=== PATIENT | male | born 1970 | race Caucasian/White ===

== ENCOUNTER 2019-01-13 08:35 | Inpatient (IN) ==
[2019-01-07 17:20] LABS: Appearance,Urine CLEAR; Bilirubin,Urine NEG (NEG); Color,Urine YELLOW; Glucose,Urine (UA) NEGATIVE (NEG); Ketones,Urine NEG (NEG); Leukocyte Esterase,Urine NEG /uL (NEG); Nitrate,Urine NEG (NEG); Protein,Urine NEG (NEG); Specific Gravity,Urine 1.015 (1.000-1.035); Urine Blood NEG mg/dL (<0.03); Urobilinogen,Urine NEG (NEG)
[2019-01-07 17:29] LABS: Blood Urea Nitrogen 11 mg/dl (6-20); Calcium 9.6 mg/dl (8.6-10.4); Carbon Dioxide 25 mmol/L (22-30); Chloride 103 mmol/L (96-108); Glomerular Filtration Rate 101; Glucose 91 mg/dL (70-105)
[2019-01-07 17:42] LABS: INR 0.9 (0.9-1.1); Prothrombin Time 12.4 sec (11.9-14.5)
[2019-01-07 18:08] LABS: Basophils # (Auto) 0 K/mcL (0.0-0.3); Basophils % (Auto) 0.3 % (0.0-2.0); Eosinophils # (Auto) 0.3 K/mcL (0.0-0.7); Eosinophils % (Auto) 2.6 % (0.0-7.0); Granulocytes % (Auto) 68.4 % (38.0-78.0); Hematocrit 42.8 % (41.0-55.0); Hemoglobin 14.4 g/dL (13.5-16.5); Lymphocytes # (Auto) 1.8 K/mcL (1.5-4.8); Lymphocytes % (Auto) 17.5 % (15.5-49.0); Mean Corpuscular HGB Conc 33.7 g/dL (31.0-36.0); Mean Platelet Volume 8.8 fL (7.4-10.4); Monocytes # (Auto) 1.1 K/mcL (0.1-0.9); Monocytes % (Auto) 11.2 % (1.0-12.0); Platelet Count 264 K/mcL (140-440); RBC 4.28 M/mcL (4.50-5.90); Red Cell Distribution Width 13.1 % (11.5-14.5); WBC 10.1 K/mcL (4.5-11.0)
[~2019-01-13 08:35] MED LIST: 0.9 % SODIUM CHLORIDE 9 ML, KETOROLAC 30 MG, ROPIVACAINE HCL/PF 49.5 ML, EPINEPHrine 0.... IJ SCH; IPRATROPIUM/ALBUTEROL 3 ML AMPUL.NEB NEB PRN; SCOPOLAMINE 1 PATCH PATCH TOPICAL PRN; ceFAZolin 3 GM in DEXTROSE 5% IN WATER 50 ML IV SCH
[2019-01-13] MEDS ORDERED: ePHEDrine 50 MG/ML AMPUL IV ONE (11:15)
[2019-01-13] MEDS ORDERED: GLYCOPYRROLATE 0.2 MG/ML VIAL IV ONE (11:15)
[2019-01-13] MEDS ORDERED: KETAMINE 10 MG/ML ML ONE (11:15)
[2019-01-13] MEDS ORDERED: HYDROmorphone 2 MG/ML VIAL ONE (11:15)
[2019-01-13] MEDS ORDERED: MIDAZOLAM 5 MG/5 ML VIAL ONE (11:15)
[2019-01-13] MEDS ORDERED: DEXAMETHASONE 10 MG/ML VIAL ONE (11:15)
[2019-01-13] MEDS ORDERED: PROPOFOL 200 MG/20 ML VIAL IV ONE (11:15)
[2019-01-13] MEDS ORDERED: LIDOCAINE HCL/PF 100 MG/5 ML SYRINGE IV ONE (11:15)
[2019-01-13] MEDS ORDERED: PHENYLEPHRINE 10 MG/ML VIAL ONE (11:15)
[2019-01-13] MEDS ORDERED: fentaNYL 100 MCG/2 ML VIAL IV ONE (11:15)
[2019-01-13] MEDS ORDERED: ONDANSETRON 4 MG/2 ML VIAL ONE (11:15)
[2019-01-13] MEDS ORDERED: fentaNYL 100 MCG/2 ML VIAL IV PRN (11:59)
[2019-01-13] MEDS ORDERED: METHOCARBAMOL 1,000 MG/10 ML VIAL IV PRN (11:59)
[2019-01-13] MEDS ORDERED: FLUMAZENIL 0.1 MG/ML ML IV PRN (11:59)
[2019-01-13] MEDS ORDERED: HYDROmorphone 2 MG/ML VIAL IV PRN (11:59)
[2019-01-13] MEDS ORDERED: NALOXONE HCL 0.4 MG/ML VIAL IV PRN (11:59)
[2019-01-13] MEDS ORDERED: BENZOCAINE/MENTHOL 1 LOZENGE PO PRN ×2 (11:59→13:50)
[2019-01-13] MEDS ORDERED: ACETAMINOPHEN 1,000 MG/100 ML BOTTLE IV ONE (11:59)
[2019-01-13] MEDS ORDERED: IPRATROPIUM/ALBUTEROL 3 ML AMPUL.NEB NEB PRN (11:59)
[2019-01-13] MEDS ORDERED: LACTATED RINGERS 250 ML IV PRN (11:59)
[2019-01-13] MEDS ORDERED: MEPERIDINE 25 MG/ML SYRINGE IV PRN (11:59)
[2019-01-13] MEDS ORDERED: LACTATED RINGERS 1,000 ML IV SCH (12:00)
[2019-01-13] MEDS ORDERED: GENTAMICIN SULFATE 800 MG/20 ML VIAL IR ONE (12:02)
[2019-01-13] MEDS ORDERED: TRANEXAMIC ACID 1,000 MG/10 ML VIAL IV ONE ×2 (13:50→14:28)
[2019-01-13] MEDS ORDERED: POLYETHYLENE GLYCOL 3350 17 GM PACKET PO PRN (13:50)
[2019-01-13] MEDS ORDERED: BISACODYL 10 MG SUPP.RECT PR PRN (13:50)
[2019-01-13] MEDS ORDERED: ONDANSETRON 4 MG/2 ML VIAL IV PRN (13:50)
[2019-01-13] MEDS ORDERED: MAGNESIUM HYDROXIDE 30 ML ORAL.SUSP PO PRN (13:50)
[2019-01-13] MEDS ORDERED: FLEETS ADULT ENEMA PR PRN (13:50)
--- NOTE | 2019-01-13 13:50 | Brief Operative Note ---
Date of procedure: 01/13/19 Pre-op diagnosis: R knee DJD Post-op diagnosis: same Procedure: TRUDI r TKR Grafts/Implants: Yes (Triathlon knee ) Anesthesia: GETA Complications: none Surgeon: Jasmeet Vásquez Awning Maker: Jose De Jesus Nunes Tourniquet Time (Minutes): 250 Specimens Removed/Pathology: other (culture sent of synovial fluid) Condition: stable Disposition: PACU
[2019-01-13] MEDS ORDERED: ALPRAZolam 0.25 MG TABLET PO PRN (13:55)
[2019-01-13] MEDS ORDERED: ALLOPURINOL 100 MG TABLET PO PRN (13:55)
[2019-01-13] MEDS: 0.9 % SODIUM CHLORIDE 10 ML SYRINGE IV SCH ×2 (15:00→20:22)
[2019-01-13] MEDS: 0.45 % SODIUM CHLORIDE 1,000 ML IV SCH (15:20)
--- NOTE | 2019-01-13 16:04 | XRay Report ---
HISTORY: Postop right knee replacement FINDINGS: There is a well-positioned right total knee prosthesis. No fracture is present. Adjacent to the medial femoral condyle there is a heterotopic well circumscribed calcification which measures 6 x 13 mm. No donor site is seen. IMPRESSION: Well-positioned knee prosthesis Interpreted and Authenticated by: Elgin Pink 01/13/19
[2019-01-13] MEDS: oxyCODONE HCL 5 MG TABLET PO PRN ×2 (16:15→20:21)
[2019-01-13] MEDS: ceFAZolin 1 GM VIAL IV SCH (18:38)
[2019-01-13] MEDS: DOCUSATE SODIUM 100 MG CAPSULE PO SCH (20:21)
[2019-01-13] MEDS: DILTIAZEM 240 MG CAP.XL.24H PO SCH (20:22)
[2019-01-13] MEDS: SENNOSIDES 1 TABLET PO SCH (20:22)
[2019-01-13] MEDS: LOSARTAN 50 MG TABLET PO SCH (20:22)
[2019-01-13] MEDS: ASPIRIN 81 MG TAB.CHEW PO SCH (20:22)
[2019-01-14] MEDS: oxyCODONE HCL 5 MG TABLET PO PRN ×5 (02:59→20:52)
[2019-01-14] MEDS: ceFAZolin 1 GM VIAL IV SCH (03:01)
[2019-01-14] MEDS: 0.9 % SODIUM CHLORIDE 10 ML SYRINGE IV SCH ×4 (03:30→21:47)
[2019-01-14 05:44] LABS: Hematocrit 38.2 % (41.0-55.0)
[2019-01-14] MEDS: 0.45 % SODIUM CHLORIDE 1,000 ML IV SCH (05:48)
[2019-01-14 05:58] LABS: INR 1.1 (0.9-1.1); Prothrombin Time 13.9 sec (11.9-14.5)
--- NOTE | 2019-01-14 07:52 | Operative Note ---
DATE OF OPERATION: 01/13/2019 PREOPERATIVE DIAGNOSIS: Right knee degenerative joint disease. POSTOPERATIVE DIAGNOSIS: Right knee degenerative joint disease. OPERATION: TRUDI assisted right total knee replacement. SURGEON: Jasmeet Vásquez MD PATROL SERGEANT: Jose De Jesus Nunes PA-C. This provider's expertise and technical skill were required throughout the case. The ANSON assisted with preoperative coordination, intraoperative retraction, wound closure, dressing and splint application, as well as postoperative documentation and care coordination. ANESTHESIA: General done by Mario Balderrama CRNA TOURNIQUET TIME: 103 minutes. ESTIMATED BLOOD LOSS: 250 mL SUMMARY OF PROCEDURE: General anesthesia was attained. The right leg was prepped and draped. A midline incision was made from the quadriceps to the tibial tubercle. This was taken down sharply to the medial retinaculum and quadriceps. A mid vastus approach was used. The VMO was split for about 1 inch as was the quadriceps followed by a medial retinacular longitudinal split. The patella was mobilized laterally. The menisci and ACL were resected and released. The knee was very arthritic throughout all parts of the knee. Two stab incisions were made in the femur and two in the tibia. The tibia bone was predrilled and then a 3.2 array pin placed. Next, 4.0 array pins were drilled into the femur and the TRUDI arrays were placed. I then located the hip center by internally rotating the leg. We then placed a checkpoint in the femur and in the tibia. The registration was then done, 40 anatomic landmarks on the femur and 40 on the tibia. We then did balancing of the medial and lateral aspects of the joint in extension and flexion and adjusted femoral rotation and flexion accordingly. The bone cuts were next made. The bone was removed. The patella was everted. It was 24 mm in depth and we resected 9 mm. The sizing was a 5 femur with a 5 tibia. The best combination of full extension with excellent stability was with a 10 mm cruciate retaining insert. The joint surfaces were thoroughly irrigated. All bone spurs were removed during the case. The components were cemented in. The cement was cured with knee in full extension. Excess cement was removed. The tourniquet was let down. All bleeding points were coagulated. The knee was injected throughout with multimodal injection for postoperative pain relief. Quadriceps and medial retinacular splits were closed with two sutures of running Stratafix. The subcutaneous tissue was closed with buried 2-0 Monocryl and the skin was closed with Dura-Alcazar. A sterile compressive dressing was applied. The sponge, needle count was correct. The patient tolerated the procedure well and was taken to the recovery room in stable condition. TJF:palak Job ID: [id number] Doc ID: [id number] Jasmeet Vásquez MD
--- NOTE | 2019-01-14 08:10 | Orthopedic Progress Note ---
Subjective Patient information: Note initiated : 01/14/19 at 8:08 am Service Date, if different from initiated Date: [] Patient: Panda Abad 48 y/o M admitted on 01/13/19 for Right Total Knee Arthroplasty Guido . Chief Complaint: [] Objective Vital signs: Vital Signs Temp Pulse Pulse Resp BP Pulse Ox 01/14/19 07:22 98.4 F 20 121/68 95 01/13/19 22:59 98.3 F 80 18 129/73 95 01/13/19 19:16 98 F 81 20 127/69 91 01/13/19 18:20 18 117/72 92 01/13/19 16:46 16 113/67 92 01/13/19 16:31 16 109/65 97 01/13/19 15:56 16 116/68 87 L 01/13/19 15:41 16 117/66 88 L 01/13/19 15:28 94 01/13/19 15:26 16 110/60 95 01/13/19 15:10 98.0 F 16 107/59 94 01/13/19 14:55 97.2 F 80 15 147/67 96 01/13/19 14:45 80 13 100/83 96 01/13/19 14:40 84 12 116/51 93 01/13/19 14:35 88 14 113/81 99 01/13/19 14:30 87 14 111/48 99 01/13/19 14:27 97.1 F 88 88 14 115/60 99 01/13/19 08:35 96.8 F L 64 20 124/76 96 Intake and Output 01/13/19 01/14/19 01/14/19 21:59 05:59 13:59 Intake Total 2305 1260 Output Total 550 900 Balance 1755 360 Intake: IV 100 Oral 480 1260 IV - Manual Only 1725 Output: Void Amount 550 900 Other: Meal Dinner Percent of Meal Consumed 100% Feeding Ability Independent Urine Appearance Clear Urine Color Dark Yellow Weight 306 lb Intake & Output: Intake & Output 01/13/19 01/14/19 01/14/19 21:59 05:59 13:59 Intake Total 2305 1260 Output Total 550 900 Balance 1755 360 Weight 306 lb Intake: IV 100 Oral 480 1260 IV - Manual Only 1725 Output: Void Amount 550 900 Other: Meal Dinner Percent of Meal Consumed 100% Feeding Ability Independent Urine Appearance Clear Urine Color Dark Yellow Incision clean and dry: Yes Dressing: Yes clean, Yes dry Weight bearing status: full Neurological exam IM: Yes alert, Yes oriented X3 Extremities exam IM: Yes neurovascular intact - Labs CBC & BMP: 01/14/19 03:55 01/07/19 14:41 Labs: Orthopedic Labs 01/14/19 01/07/19 03:55 14:41 PT 13.9 12.4 INR 1.1 0.9 01/14/19 01/07/19 03:55 14:42 Hgb 13.0 L 14.4 Hct 38.2 L 42.8 Assessment and Plan - Narrative A/P Narrative: doing well so far. Pain to be treated with oxycodone. Continue ASA and foot pumps for DVT prophylaxis.
[2019-01-14] MEDS: ATENOLOL 50 MG TABLET PO SCH (08:19)
[2019-01-14] MEDS: DOCUSATE SODIUM 100 MG CAPSULE PO SCH ×2 (08:19→19:53)
[2019-01-14] MEDS: ASPIRIN 81 MG TAB.CHEW PO SCH ×2 (08:20→19:53)
[2019-01-14] MEDS: DILTIAZEM 240 MG CAP.XL.24H PO SCH ×2 (08:20→19:53)
[2019-01-14] MEDS ORDERED: NON FORMULARY MEDICATION 1 DOSE MISCELL (Aspirin 81 MG) PO SCH (09:00)
[2019-01-14] MEDS: SENNOSIDES 1 TABLET PO SCH (19:53)
[2019-01-14] MEDS: LOSARTAN 50 MG TABLET PO SCH (19:53)
[2019-01-14] MEDS: METHOCARBAMOL 1,000 MG/10 ML VIAL IV PRN (23:06)
[2019-01-15] MEDS: oxyCODONE HCL 5 MG TABLET PO PRN ×4 (00:50→12:48)
[2019-01-15] MEDS: 0.9 % SODIUM CHLORIDE 10 ML SYRINGE IV SCH ×2 (05:14→13:51)
[2019-01-15 05:58] LABS: Hematocrit 35.1 % (41.0-55.0); Hemoglobin 11.8 g/dL (13.5-16.5)
[2019-01-15 06:01] LABS: INR 1.1 (0.9-1.1); Prothrombin Time 13.8 sec (11.9-14.5)
--- NOTE | 2019-01-15 07:58 | Orthopedic Progress Note ---
Subjective Patient information: Note initiated : 01/15/19 at 7:56 am Service Date, if different from initiated Date: [] Patient: Panda Abad 48 y/o M admitted on 01/13/19 for Right Total Knee Arthroplasty Guido with Dr. Vásquez. Chief Complaint: right knee pain. Interval history: Pt is POD #2 following Right TKA with Guido on 01/13/19. Overall doing well this AM. States he had quite a bit of pain last evening but is now controlled. Has been ambulating with PT. He has not had a bowel movement yet. Denies fevers/chi lls, CP, N/V, SOB, numbness/tingling. Pertinent ROS: negative except per HPI. Objective Vital signs: Vital Signs Temp Pulse Resp BP Pulse Ox 01/15/19 07:05 98.3 F 20 144/81 97 01/15/19 05:15 97.8 F 75 16 146/80 94 01/14/19 22:56 98.8 F 88 18 134/74 96 01/14/19 19:00 98.4 F 80 16 124/65 94 01/14/19 16:00 97.5 F 16 125/69 95 01/14/19 08:00 97 Intake and Output 01/14/19 01/15/19 01/15/19 21:59 05:59 13:59 Intake Total 1160 600 Output Total 450 950 Balance 710 -350 Intake: Oral 1160 600 Output: Void Amount 450 950 Other: Meal Dinner Percent of Meal Consumed 100% Urine Appearance Clear Urine Color Bright Yellow Urine Odor Normal Weight 310 lb Intake & Output: Intake & Output 01/14/19 01/15/19 01/15/19 21:59 05:59 13:59 Intake Total 1160 600 Output Total 450 950 Balance 710 -350 Weight 310 lb Intake: Oral 1160 600 Output: Void Amount 450 950 Other: Meal Dinner Percent of Meal Consumed 100% Urine Appearance Clear Urine Color Bright Yellow Urine Odor Normal Dressing: Yes clean, Yes dry, Yes intact Weight bearing status: as tolerated Neurological exam IM: Yes alert, Yes oriented X3, Yes neurovascular intact Extremities exam IM: No calf tenderness, Yes normal capillary refill, Yes normal inspection, No Robert's sign, Yes neurovascular intact - Labs CBC & BMP: 01/15/19 04:40 01/07/19 14:41 Labs: Orthopedic Labs 01/15/19 01/14/19 01/07/19 04:40 03:55 14:41 PT 13.8 13.9 12.4 INR 1.1 1.1 0.9 01/15/19 01/14/19 01/07/19 04:40 03:55 14:42 Hgb 11.8 L 13.0 L 14.4 Hct 35.1 L 38.2 L 42.8 Assessment and Plan (1) S/P total knee arthroplasty Status: Acute - Narrative A/P Narrative: Pt is POD #2 following Right TKA with Guido on 01/13/19. Overall doing well this AM. Will plan for discharge today. Continnue DVT prophylaxis. Continue oxycodone for pain management. Continue PT.
--- NOTE | 2019-01-15 08:02 | Discharge Summary ---
Providers - Providers Patient information: Note initiated : 01/15/19 at 8:00 am Service Date, if different from initiated Date: [] Patient: Panda Abad 48 y/o M admitted on 01/13/19 for Right Total Knee Arthroplasty Tawnya with Dr. Vásquez. Chief Complaint: right knee pain Date of admission: 01/13/19 Discharge date: 01/15/19 Hospitalization Hospital Course: Pt was admitted on 01/13/19 for right tka with tawnya with Dr. Vásquez. Vitals remain stable. Postoperatively has been doing well and has ambulated with PT. Has had issue with pain control but seems to be under control this AM per patient. Hospital course has otherwise been unremarkable. Discharge diagnosis: s/p total knee arthroplasty Exam - Exam Incision healing: Yes Incision draining: No Incision red: No Clean and dry: Yes Weight bearing status: as tolerated Ortho Discharge - TKA - Patient Instructions Diet: Regular Diet Activity: activity as tolerated, ambulate with assistive device Total Knee Protocol: For Total Knee: Start ROM JAQUELINE with stationary bike or rocking chair. Work on gaining full extension of knee. Apply Cryocuff as instructed. Dressing Care: Other (may shower with Dermabond in place.) - Problem Maintenance (1) S/P total knee arthroplasty Status: Acute - Follow Up Plan Follow Up Appointments: Dean Langford PA-C [Physician [facility] Aide] - 01/26/19 1:00 pm Disposition: Home, Self-Care Prognosis: Good Rehab Potential: Good Overall status at discharge: patient is progressing back to baseline - Orders For Discharge Prescriptions: Docusate Sodium [Colace] 100 mg PO BID #60 cap Transmission Status: Pending to [facility] Pending Studies Resuscitation Status Full Code Diet Regular Diet Start ThuJan 13 Dinner Alprazolam (Xanax) 0.25 mg PO DAILYP PRN PRN Reason: Anxiety Last Admin: 01/14/19 23:06 Dose: 0.25 mg Documented by: SENAIT Aspirin (Aspirin) 81 mg PO BID BHARATHI Last Admin: 01/14/19 19:53 Dose: 81 mg Documented by: Admin: 01/14/19 08:20 Dose: 81 mg Documented by: Admin: 01/13/19 20:22 Dose: 81 mg Documented by: JORGE L Atenolol (Tenormin) 50 mg PO DAILY [facility] Last Admin: 01/14/19 08:19 Dose: 50 mg Documented by: JAMES Diltiazem HCl (Cardizem Cd) 240 mg PO BID [facility] Last Admin: 01/14/19 19:53 Dose: 240 mg Documented by: Admin: 01/14/19 08:20 Dose: 240 mg Documented by: Admin: 01/13/19 20:22 Dose: 240 mg Documented by: JORGE L Docusate Sodium (Colace) 100 mg PO BID [facility] Last Admin: 01/14/19 19:53 Dose: 100 mg Documented by: Admin: 01/14/19 08:19 Dose: 100 mg Documented by: Admin: 01/13/19 20:21 Dose: 100 mg Documented by: JORGE L Losartan Potassium (Cozaar) 100 mg PO QPM [facility] Last Admin: 01/14/19 19:53 Dose: 100 mg Documented by: Admin: 01/13/19 20:22 Dose: 100 mg Documented by: JORGE L Methocarbamol (Robaxin) 750 mg IV Q6HP PRN PRN Reason: Muscle Spasm Last Admin: 01/14/19 23:06 Dose: 750 mg Documented by: SENAIT Oxycodone HCl (Roxicodone) 0 mg PO Q4HP PRN PRN Reason: PAIN LEVEL 3-6 Last Admin: 01/15/19 05:11 Dose: 10 mg Documented by: Admin: 01/15/19 00:50 Dose: 10 mg Documented by: Admin: 01/14/19 20:52 Dose: 10 mg Documented by: Admin: 01/14/19 17:28 Dose: 10 mg Documented by: Admin: 01/14/19 12:57 Dose: 10 mg Documented by: Admin: 01/14/19 08:23 Dose: 10 mg Documented by: Admin: 01/14/19 02:59 Dose: 10 mg Documented by: JORGE L Admin: 01/13/19 20:21 Dose: 10 mg Documented by: JORGE L Admin: 01/13/19 16:15 Dose: 10 mg Documented by: JAMES Senna (Senokot) 2 tab PO HS [facility] Last Admin: 01/14/19 19:53 Dose: 2 tab Documented by: Admin: 01/13/19 20:22 Dose: 2 tab Documented by: JORGE L Sodium Chloride (Saline Flush) 10 ml IV Q8 BHARATHI Last Admin: 01/15/19 05:14 Dose: 10 ml Documented by: Admin: 01/14/19 21:47 Dose: Not Given Documented by: Admin: 01/14/19 19:53 Dose: 10 ml Documented by: Admin: 01/14/19 16:14 Dose: 10 ml Documented by: Admin: 01/14/19 03:30 Dose: 10 ml Documented by: JORGE L Admin: 01/13/19 20:22 Dose: Not Given Documented by: JORGE L Admin: 01/13/19 15:00 Dose: Not Given Documented by: UHoracioF Shift Summary 01/14/19 14:59 Shift Summary by Mercedes George Pt had a good day. Ambulating up to 350 feet with SBA. Medicated twice for 6/10 throbbing/tightness type of knee pain. Voids per urinal. Good appetite. Given prune juice to prevent constipation. Pt has had bad experience with constipation last hospitalization. [facility] checks WNL, using doppler for RLE peripheral pulses. Has hx of surgery on his right food. No respiratory issues, uses home CPAP at night. Uses I.S. up to 3250. Initialized on 01/14/19 14:59 - END OF NOTE
[2019-01-15] MEDS: DOCUSATE SODIUM 100 MG CAPSULE PO SCH (08:51)
[2019-01-15] MEDS: DILTIAZEM 240 MG CAP.XL.24H PO SCH (08:51)
[2019-01-15] MEDS: METHOCARBAMOL 1,000 MG/10 ML VIAL IV PRN (08:51)
[2019-01-15] MEDS: ASPIRIN 81 MG TAB.CHEW PO SCH (08:52)
[2019-01-15] MEDS: ATENOLOL 50 MG TABLET PO SCH (08:52)
== END 2019-01-15 15:55 | disposition home or self-care (01) | DRG 470 ==
LOC: MEDSUR 08:35 → EDSTATUS 13:00
PROVIDERS: ADMIT Orthopaedic Surgery Foot and Ankle Surgery; ATTEND Orthopaedic Surgery Foot and Ankle Surgery